=== PATIENT | female | born 1965 ===

== ENCOUNTER 2021-02-18 17:10 | Inpatient (IN) | payer MEDICAID ==
[2021-02-19] MEDS: OMEGA-3 FATTY ACIDS/FISH OIL 1 GRAM CAP PO SCH ×2 (20:26→21:34)
[2021-02-19] MEDS: traZODone 50 MG TAB PO SCH ×2 (20:26→21:34)
[2021-02-19] MEDS: MELATONIN 5 MG TAB PO PRN (20:54)
[2021-02-20] MEDS: OMEGA-3 FATTY ACIDS/FISH OIL 1 GRAM CAP PO SCH ×2 (09:40→22:15)
[2021-02-20 11:30] LABS: Basophils # (Auto) 0.1 K/mm3 (0.0-0.1); Basophils % (Auto) 0.5 % (0.0-1.8); Eosinophils # (Auto) 0.2 K/mm3 (0.0-0.4); Eosinophils % (Auto) 1.8 % (0.0-4.3); Hemoglobin 14.1 gm/dl (10.1-14.3); Lymphocytes # (Auto) 1.2 K/mm3 (1.2-5.4); Lymphocytes % (Auto) 12.4 % (13.4-35.0); Mean Corpuscular HGB Conc 34 % (30-34); Mean Corpuscular Volume 92 fl (79-97); Monocytes # (Auto) 0.6 K/mm3 (0.0-0.8); Monocytes % (Auto) 6.1 % (0.0-7.3); Platelet Count 227 K/mm3 (140-440); Red Blood Count 4.55 M/mm3 (3.65-5.03); Red Cell Distribution Width 17.2 % (13.2-15.2)
[2021-02-20 12:00] LABS: Albumin 3.6 g/dL (3.9-5); Chol/HDL Ratio 5.14 %
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
[2021-02-20] MEDS: FUROSEMIDE 20 MG TAB PO SCH (15:05)
[2021-02-20] MEDS: DIVALPROEX ER 500 MG TAB PO SCH ×2 (15:05→22:13)
[2021-02-20] MEDS: LISINOPRIL 5 MG TAB PO SCH (15:05)
[2021-02-20] MEDS: metFORMIN 500 MG TAB PO SCH (16:37)
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
[2021-02-20] MEDS ORDERED: risperiDONE 0.25 MG TAB PO SCH (22:00)
[2021-02-20] MEDS: traZODone 50 MG TAB PO SCH (22:13)
[2021-02-20] MEDS: risperiDONE 1 MG TAB PO SCH (22:13)
[2021-02-21] MEDS ORDERED: ACETAMINOPHEN 325 MG TAB PO PRN (03:02)
--- NOTE | 2021-02-21 08:42 | Progress Note ---
Subjective Date of service: 02/21/21 Principal diagnosis: Bipolar Disorder Subjective Comment: Per Nurse Note: Last evening the patient spent in the activity room. She denies si/hi. She presents as confused and hyperverbal. She presents as delusional by making statements about when she arrived here and other statements that are not consistent with her care. Her appetite is good. She is medication compliant. Overnight the patient was restless. She slept 3 hours but not continually. At 0300 the patient requested tylenol for leg pain. She came to the desk and asked for more tylenol at 0530. This life insurance underwriter explained we couldn't give her any more tylenol until it had been 4 hours. She understood and requested something to eat. She was given ice water and 2 pkgs crackers. Patient requested to put sugar in the water. This life insurance underwriter asked her about being diabetic. She stated "they say I am." It was explained to her sugar in the water would not be a good idea. She returned to her room. The patient was seen today, she says "I'm supposed to go home." She says "I'm worried about my son." The patient says she lives with her adult son. She denies SI/HI or hallucination of any kind. Nursing staff states the patient presents as delusional. REVIEW OF SYSTEMS Constitutional: Negative for weight loss ENT: Negative for stridor Respiratory: Negative for cough or hemoptysis All other systems reviewed and are negative MENTAL STATUS EXAMINATION General Appearance and Behavior: Age appropriate, good hygiene, not wearing appropriate clothes, good eye contact, cooperative polite with questioning. Cooperation: Participating/engaged Psychomotor Behavior: Psychomotor agitation Mood: Good Affect and affective range: euthymic, euphoric Thought Process:Circumstantial, Illogical, Thought Content: Flight of ideas, Illogical, Grandiose, Speech: pressured, loud volume at times Intellectual Functioning: Average Suicidal Ideation: Denies SI Homicidal Ideation: Denies HIl Impulse Control: Impaired Insight and Judgment: Limited insight and judgment Memory: Normal, Attention: Divided attention impaired Orientation: Alert, oriented, Assessment and Plan - Psychiatric problem (1) Bipolar 1 disorder with moderate jboy Current Visit: Yes Status: Acute Treatment Plan Patient admitted for inpatient psychiatric evaluation, medication adjustment and close monitoring The patient's behavior, mood, sleep and appetite will be closely monitored. Patient enrolled in individual and group therapeutic sessions and encouraged to attend. Patient provided with a safe and structured environment. Patient's physical health needs will be addressed by the Hospitalist. Hospitalist Consulted Labs including CBC, CMP, Lipid profile and Hemoglobin A1C levels ordered for baseline reference Valproic level 02/23 Social Assessment will be completed and the Access Developer will work with patient and family to ensure a suitable and safe disposition Medication adjustment will be made as clinically indicated Usual Wellness Jewish/Preservation: - Start Trazodone 50 mg po QHS & 50 mg po QHS PRN between 10 PM & 2 AM for insomnia - Start Melatonin 5 mg po QHS to promote circadian rhythm - Start [place]-3 for brain health, reduce impulsivity, and as adjunctive treatment for mood disorder, continue upon discharge given overall benefits. - Start B1 prophylaxis with 200 mg po for 5 days The patient agreed on the treatment plan, understood the risk, benefit, alternative treatment, potential consequence of no treatment, and gave informed consent. Estimated days: 6 Post hospital care: primary care provider, psychiatric provider Medications and Allergies Allergies Allergy/AdvReac Type Severity Reaction Status Date / Time No Known Allergies Allergy Verified 02/19/21 11:38 Home Medications Medication Instructions Recorded Confirmed Last Taken Type Cyanocobalamin [Vitamin B-12] 500 mcg PO DAILY 02/19/21 02/19/21 Unknown History Divalproex ER [DepaKOTE ER] 500 mg PO BID 02/19/21 02/19/21 Unknown History Docusate Sodium [Dok] 100 mg PO DAILY 02/19/21 02/19/21 Unknown History Enoxaparin Sodium [Lovenox] 40 mg SQ DAILY 02/19/21 02/19/21 Unknown History Furosemide [Lasix] 20 mg PO DAILY 02/19/21 02/19/21 Unknown History Lisinopril [Zestril] 5 mg PO DAILY 02/19/21 02/19/21 Unknown History Metformin HCl [metFORMIN] 1,000 mg PO BID 02/19/21 02/19/21 Unknown History Simvastatin 40 mg PO DAILY 02/19/21 02/19/21 Unknown History diphenhydrAMINE [Benadryl CAP] 50 mg PO PRN PRN 02/19/21 02/19/21 Unknown History risperiDONE [RisperDAL] 2 mg PO BID 05/19/21 05/19/21 Unknown History Active Meds: Active Medications Acetaminophen (Acetaminophen 325 Mg Tab) 650 mg PO Q6H PRN PRN Reason: Pain, Mild (1-3) Last Admin: 02/21/21 03:06 Dose: 650 mg Documented by: Atorvastatin Calcium (Atorvastatin 20 Mg Tab) 20 mg PO QHS [facility] Last Admin: 02/20/21 22:16 Dose: 20 mg Documented by: Divalproex Sodium (Divalproex Er 500 Mg Tab) 500 mg PO BID [facility] Last Admin: 02/20/21 22:13 Dose: 500 mg Documented by: Fish Oil ([place]-3 Fatty Acids/Fish Oil 1 Gram Cap) 2,000 mg PO BID [facility] Last Admin: 02/20/21 22:15 Dose: 2,000 mg Documented by: Furosemide (Furosemide 20 Mg Tab) 20 mg PO QAM [facility] Last Admin: 02/20/21 15:05 Dose: 20 mg Documented by: Lisinopril (Lisinopril 5 Mg Tab) 5 mg PO DAILY [facility] Last Admin: 02/20/21 15:05 Dose: 5 mg Documented by: Melatonin (Melatonin 5 Mg Tab) 5 mg PO QHS PRN PRN Reason: Sleep Metformin HCl (Metformin 500 Mg Tab) 1,000 mg PO BIDDIAB [facility] Last Admin: 02/20/21 16:37 Dose: 1,000 mg Documented by: Risperidone (Risperidone 1 Mg Tab) 1 mg PO BID [facility] Last Admin: 02/20/21 22:13 Dose: 1 mg Documented by: Trazodone HCl (Trazodone 50 Mg Tab) 50 mg PO QHS [facility] Last Admin: 02/20/21 22:13 Dose: 50 mg Documented by: Results - Results Labs/Vitals: Laboratory Last Values WBC 9.9 K/mm3 (4.5-11.0) 02/20/21 10:57 RBC 4.55 M/mm3 (3.65-5.03) 02/20/21 10:57 Hgb 14.1 gm/dl (10.1-14.3) 02/20/21 10:57 Hct 42.0 % (30.3-42.9) 02/20/21 10:57 MCV 92 fl (79-97) 02/20/21 10:57 MCH 31 pg (28-32) 02/20/21 10:57 MCHC 34 % (30-34) 02/20/21 10:57 RDW 17.2 % (13.2-15.2) H 02/20/21 10:57 Plt Count 227 K/mm3 (140-440) 02/20/21 10:57 Lymph % (Auto) 12.4 % (13.4-35.0) L 02/20/21 10:57 [place] % (Auto) 6.1 % (0.0-7.3) 02/20/21 10:57 Eos % (Auto) 1.8 % (0.0-4.3) 02/20/21 10:57 Baso % (Auto) 0.5 % (0.0-1.8) 02/20/21 10:57 Lymph # (Auto) 1.2 K/mm3 (1.2-5.4) 02/20/21 10:57 [place] # (Auto) 0.6 K/mm3 (0.0-0.8) 02/20/21 10:57 Eos # (Auto) 0.2 K/mm3 (0.0-0.4) 02/20/21 10:57 Baso # (Auto) 0.1 K/mm3 (0.0-0.1) 02/20/21 10:57 Seg Neutrophils % 79.2 % (40.0-70.0) H 02/20/21 10:57 Seg Neutrophils # 7.9 K/mm3 (1.8-7.7) H 02/20/21 10:57 Sodium 142 mmol/L (137-145) 02/20/21 10:57 Potassium 4.4 mmol/L (3.6-5.0) 02/20/21 10:57 Chloride 102.4 mmol/L (98-107) 02/20/21 10:57 Carbon Dioxide 29 mmol/L (22-30) 02/20/21 10:57 Anion Gap 15 mmol/L 02/20/21 10:57 BUN 23 mg/dL (7-17) H 02/20/21 10:57 Creatinine 1.0 mg/dL (0.6-1.2) 02/20/21 10:57 Estimated GFR 57 ml/min 02/20/21 10:57 BUN/Creatinine Ratio 23 % 02/20/21 10:57 Glucose 162 mg/dL (65-100) H 02/20/21 10:57 POC Glucose 134 mg/dL (70-105) H 02/20/21 20:21 Hemoglobin A1c 7.6 % (4-6) H 02/20/21 10:57 Calcium 9.0 mg/dL (8.4-10.2) 02/20/21 10:57 Total Bilirubin 0.30 mg/dL (0.1-1.2) 02/20/21 10:57 AST 16 units/L (5-40) 02/20/21 10:57 ALT 19 units/L (7-56) 02/20/21 10:57 Alkaline Phosphatase 136 units/L (35-129) H 02/20/21 10:57 Total Protein 6.1 g/dL (6.3-8.2) L 02/20/21 10:57 Albumin 3.6 g/dL (3.9-5) L 02/20/21 10:57 Albumin/Globulin Ratio 1.4 % 02/20/21 10:57 Triglycerides 267 mg/dL (2-149) H 02/20/21 10:57 Cholesterol 144 mg/dL (50-199) 02/20/21 10:57 LDL Cholesterol Direct 80 mg/dL (50-130) 02/20/21 10:57 HDL Cholesterol 28 mg/dL (40-59) L 02/20/21 10:57 Cholesterol/HDL Ratio 5.14 % 02/20/21 10:57 TSH 1.660 mlU/mL (0.270-4.200) 02/20/21 10:57 Last Vital Signs Temp 98.3 F 02/21/21 08:09 Pulse 86 02/21/21 08:09 Resp 18 02/21/21 08:09 BP 117/61 02/21/21 08:09 Pulse Ox 92 02/21/21 08:09
[2021-02-21] MEDS: FUROSEMIDE 20 MG TAB PO SCH (09:15)
[2021-02-21] MEDS: metFORMIN 500 MG TAB PO SCH ×2 (09:15→16:49)
[2021-02-21] MEDS: risperiDONE 1 MG TAB PO SCH ×2 (09:15→21:32)
[2021-02-21] MEDS: OMEGA-3 FATTY ACIDS/FISH OIL 1 GRAM CAP PO SCH ×2 (09:15→21:32)
[2021-02-21] MEDS: DIVALPROEX ER 500 MG TAB PO SCH ×2 (09:16→21:32)
[2021-02-21] MEDS: LISINOPRIL 5 MG TAB PO SCH (09:16)
[2021-02-21] MEDS: traZODone 50 MG TAB PO SCH (21:32)
[2021-02-22] MEDS: metFORMIN 500 MG TAB PO SCH ×2 (08:12→16:24)
[2021-02-22] MEDS: LISINOPRIL 5 MG TAB PO SCH (08:59)
[2021-02-22] MEDS: DIVALPROEX ER 500 MG TAB PO SCH ×2 (09:01→21:26)
[2021-02-22] MEDS: OMEGA-3 FATTY ACIDS/FISH OIL 1 GRAM CAP PO SCH ×3 (09:01→21:57)
[2021-02-22] MEDS: risperiDONE 1 MG TAB PO SCH (09:01)
[2021-02-22] MEDS: FUROSEMIDE 20 MG TAB PO SCH (09:01)
--- NOTE | 2021-02-22 10:32 | Progress Note ---
Subjective Date of service: 02/22/21 Principal diagnosis: Bipolar Disorder Subjective Comment: Per Nurse Note: [id number] Received pt in the activity room, awake, responsive to greetings, disorganized thoughts, stating that her date of is incorrect, she states that "I was [place], the bruises are a proof of date of , but the baby was frozen and was taken up to another state, but her sister is blown. Staff redirected pt and will continue to monitor pt. The patient was seen today, she says "I'm going home tomorrow. That's what somebody told me." Staff states the patient has been disorganized in her thought process. She tells me that she's coloring two pictures. She then says it's an out but I made it a blue bird. She denies SI/HI or hallucinations of any kind. She states she feels "pretty good." REVIEW OF SYSTEMS Constitutional: Negative for weight loss ENT: Negative for stridor Respiratory: Negative for cough or hemoptysis All other systems reviewed and are negative MENTAL STATUS EXAMINATION General Appearance and Behavior: Age appropriate, good hygiene, not wearing appropriate clothes, good eye contact, cooperative polite with questioning. Cooperation: Participating/engaged Psychomotor Behavior: Psychomotor agitation Mood: Good Affect and affective range: euthymic, euphoric Thought Process:Circumstantial, Illogical, Thought Content: Flight of ideas, Illogical, Grandiose, Speech: pressured, loud volume at times Intellectual Functioning: Average Suicidal Ideation: Denies SI Homicidal Ideation: Denies HIl Impulse Control: Impaired Insight and Judgment: Limited insight and judgment Memory: Normal, Attention: Divided attention impaired Orientation: Alert, oriented, Assessment and Plan (1) Bipolar 1 disorder with moderate joby Current Visit: Yes Status: Acute Treatment Plan Patient admitted for inpatient psychiatric evaluation, medication adjustment and close monitoring The patient's behavior, mood, sleep and appetite will be closely monitored. Patient enrolled in individual and group therapeutic sessions and encouraged to attend. Patient provided with a safe and structured environment. Patient's physical health needs will be addressed by the Hospitalist. Hospitalist Consulted Labs including CBC, CMP, Lipid profile and Hemoglobin A1C levels ordered for baseline reference Valproic level 02/23 Social Assessment will be completed and the Engineering Systems Analyst will work with patient and family to ensure a suitable and safe disposition Medication adjustment will be made as clinically indicated Increased Risperidone 1.25mg po BID Usual Wellness Jewish/Preservation: - Start Trazodone 50 mg po QHS & 50 mg po QHS PRN between 10 PM & 2 AM for insomnia - Start Melatonin 5 mg po QHS to promote circadian rhythm - Start Hood-3 for brain health, reduce impulsivity, and as adjunctive treatment for mood disorder, continue upon discharge given overall benefits. - Start B1 prophylaxis with 200 mg po for 5 days The patient agreed on the treatment plan, understood the risk, benefit, alternative treatment, potential consequence of no treatment, and gave informed consent. Estimated days: 5 Post hospital care: primary care provider, psychiatric provider Medications and Allergies Allergies Allergy/AdvReac Type Severity Reaction Status Date / Time No Known Allergies Allergy Verified 02/19/21 11:38 Home Medications Medication Instructions Recorded Confirmed Last Taken Type Cyanocobalamin [Vitamin B-12] 500 mcg PO DAILY 02/19/21 02/19/21 Unknown History Divalproex ER [DepaKOTE ER] 500 mg PO BID 02/19/21 02/19/21 Unknown History Docusate Sodium [Dok] 100 mg PO DAILY 02/19/21 02/19/21 Unknown History Enoxaparin Sodium [Lovenox] 40 mg SQ DAILY 02/19/21 02/19/21 Unknown History Furosemide [Lasix] 20 mg PO DAILY 02/19/21 02/19/21 Unknown History Lisinopril [Zestril] 5 mg PO DAILY 02/19/21 02/19/21 Unknown History Metformin HCl [metFORMIN] 1,000 mg PO BID 02/19/21 02/19/21 Unknown History Simvastatin 40 mg PO DAILY 02/19/21 02/19/21 Unknown History diphenhydrAMINE [Benadryl CAP] 50 mg PO PRN PRN 02/19/21 02/19/21 Unknown History risperiDONE [RisperDAL] 2 mg PO BID 02/19/21 02/19/21 Unknown History Active Meds: Active Medications Acetaminophen (Acetaminophen 325 Mg Tab) 650 mg PO Q6H PRN PRN Reason: Pain, Mild (1-3) Last Admin: 02/21/21 03:06 Dose: 650 mg Documented by: Atorvastatin Calcium (Atorvastatin 20 Mg Tab) 20 mg PO QHS SHAGUFTA Last Admin: 02/21/21 21:32 Dose: 20 mg Documented by: Divalproex Sodium (Divalproex Er 500 Mg Tab) 500 mg PO BID [facility] Last Admin: 02/22/21 09:01 Dose: 500 mg Documented by: Fish Oil (Hood-3 Fatty Acids/Fish Oil 1 Gram Cap) 2,000 mg PO BID [facility] Last Admin: 02/22/21 09:01 Dose: 2,000 mg Documented by: Furosemide (Furosemide 20 Mg Tab) 20 mg PO QAM [facility] Last Admin: 02/22/21 09:01 Dose: 20 mg Documented by: Lisinopril (Lisinopril 5 Mg Tab) 5 mg PO DAILY [facility] Last Admin: 02/22/21 08:59 Dose: Not Given Documented by: Melatonin (Melatonin 5 Mg Tab) 5 mg PO QHS PRN PRN Reason: Sleep Metformin HCl (Metformin 500 Mg Tab) 1,000 mg PO BIDDIAB [facility] Last Admin: 02/22/21 08:12 Dose: 1,000 mg Documented by: Risperidone (Risperidone 1 Mg Tab) 1 mg PO BID [facility] Last Admin: 02/22/21 09:01 Dose: 1 mg Documented by: Trazodone HCl (Trazodone 50 Mg Tab) 50 mg PO QHS [facility] Last Admin: 02/21/21 21:32 Dose: 50 mg Documented by: Results - Results Labs/Vitals: Laboratory Last Values WBC 9.9 K/mm3 (4.5-11.0) 02/20/21 10:57 RBC 4.55 M/mm3 (3.65-5.03) 02/20/21 10:57 Hgb 14.1 gm/dl (10.1-14.3) 02/20/21 10:57 Hct 42.0 % (30.3-42.9) 02/20/21 10:57 MCV 92 fl (79-97) 02/20/21 10:57 MCH 31 pg (28-32) 02/20/21 10:57 MCHC 34 % (30-34) 02/20/21 10:57 RDW 17.2 % (13.2-15.2) H 02/20/21 10:57 Plt Count 227 K/mm3 (140-440) 02/20/21 10:57 Lymph % (Auto) 12.4 % (13.4-35.0) L 02/20/21 10:57 [place] % (Auto) 6.1 % (0.0-7.3) 02/20/21 10:57 Eos % (Auto) 1.8 % (0.0-4.3) 02/20/21 10:57 Baso % (Auto) 0.5 % (0.0-1.8) 02/20/21 10:57 Lymph # (Auto) 1.2 K/mm3 (1.2-5.4) 02/20/21 10:57 [place] # (Auto) 0.6 K/mm3 (0.0-0.8) 02/20/21 10:57 Eos # (Auto) 0.2 K/mm3 (0.0-0.4) 02/20/21 10:57 Baso # (Auto) 0.1 K/mm3 (0.0-0.1) 02/20/21 10:57 Seg Neutrophils % 79.2 % (40.0-70.0) H 02/20/21 10:57 Seg Neutrophils # 7.9 K/mm3 (1.8-7.7) H 02/20/21 10:57 Sodium 142 mmol/L (137-145) 02/20/21 10:57 Potassium 4.4 mmol/L (3.6-5.0) 02/20/21 10:57 Chloride 102.4 mmol/L (98-107) 02/20/21 10:57 Carbon Dioxide 29 mmol/L (22-30) 02/20/21 10:57 Anion Gap 15 mmol/L 02/20/21 10:57 BUN 23 mg/dL (7-17) H 02/20/21 10:57 Creatinine 1.0 mg/dL (0.6-1.2) 02/20/21 10:57 Estimated GFR 57 ml/min 02/20/21 10:57 BUN/Creatinine Ratio 23 % 02/20/21 10:57 Glucose 162 mg/dL (65-100) H 02/20/21 10:57 POC Glucose 152 mg/dL (70-105) H 02/22/21 06:01 Hemoglobin A1c 7.6 % (4-6) H 02/20/21 10:57 Calcium 9.0 mg/dL (8.4-10.2) 02/20/21 10:57 Total Bilirubin 0.30 mg/dL (0.1-1.2) 02/20/21 10:57 AST 16 units/L (5-40) 02/20/21 10:57 ALT 19 units/L (7-56) 02/20/21 10:57 Alkaline Phosphatase 136 units/L (35-129) H 02/20/21 10:57 Total Protein 6.1 g/dL (6.3-8.2) L 02/20/21 10:57 Albumin 3.6 g/dL (3.9-5) L 02/20/21 10:57 Albumin/Globulin Ratio 1.4 % 02/20/21 10:57 Triglycerides 267 mg/dL (2-149) H 02/20/21 10:57 Cholesterol 144 mg/dL (50-199) 02/20/21 10:57 LDL Cholesterol Direct 80 mg/dL (50-130) 02/20/21 10:57 HDL Cholesterol 28 mg/dL (40-59) L 02/20/21 10:57 Cholesterol/HDL Ratio 5.14 % 02/20/21 10:57 TSH 1.660 mlU/mL (0.270-4.200) 02/20/21 10:57 Valproic Acid 44.2 ug/mL (50-100) L 02/22/21 08:31 Last Vital Signs Temp 99.5 F 02/22/21 08:00 Pulse 89 02/22/21 08:59 Resp 18 02/22/21 08:00 BP 113/54 02/22/21 08:59 Pulse Ox 93 02/22/21 08:00
[2021-02-22] MEDS ORDERED: risperiDONE 1 MG TAB PO SCH ×2 (10:35→22:00)
[2021-02-22] MEDS: traZODone 50 MG TAB PO SCH ×2 (21:26→21:58)
[2021-02-22] MEDS: MELATONIN 5 MG TAB PO PRN (21:26)
[2021-02-22] MEDS: risperiDONE 0.25 MG TAB PO SCH (21:29)
[2021-02-22 23:34] VITALS: BP 117/65
[2021-02-23] MEDS: metFORMIN 500 MG TAB PO SCH (07:47)
[2021-02-23] MEDS: OMEGA-3 FATTY ACIDS/FISH OIL 1 GRAM CAP PO SCH (09:03)
[2021-02-23] MEDS: DIVALPROEX ER 500 MG TAB PO SCH (09:04)
[2021-02-23] MEDS: FUROSEMIDE 20 MG TAB PO SCH (09:04)
[2021-02-23] MEDS: risperiDONE 0.25 MG TAB PO SCH (09:04)
[2021-02-23] MEDS: LISINOPRIL 5 MG TAB PO SCH (09:05)
--- NOTE | 2021-02-23 09:44 | Discharge Summary ---
Providers - Providers Date of Admission: 02/19/21 08:38 Date of discharge: 02/23/21 Attending physician: BEA HILLS MD 02/18/21 18:39 Consult to Physician [CONS] Routine Comment: Consulting Provider: ANDREY BOCANEGRA Physician Instructions: Reason For Exam: med mangt Primary care physician: MA[employer]GER [employer] Hospitalization Reason for admission: psychosis Admitting Diagnosis: F31.9 - BIPOLAR DISORDER, UNSPECIFIED Condition: Stable Disposition: DC-01 TO HOME OR SELFCARE Time spent for discharge: 38 Allergies/Adverse Reactions: Allergies No Known Allergies Allergy (Verified 02/19/21 11:38) Vital Signs: Last Vital Signs Temp 98.7 F 02/22/21 19:26 Pulse 82 02/23/21 09:05 Resp 17 02/22/21 19:26 BP 117/65 02/23/21 09:05 Pulse Ox 93 02/22/21 08:00 Last Lab: Laboratory Last Values WBC 9.9 K/mm3 (4.5-11.0) 02/20/21 10:57 RBC 4.55 M/mm3 (3.65-5.03) 02/20/21 10:57 Hgb 14.1 gm/dl (10.1-14.3) 02/20/21 10:57 Hct 42.0 % (30.3-42.9) 02/20/21 10:57 MCV 92 fl (79-97) 02/20/21 10:57 MCH 31 pg (28-32) 02/20/21 10:57 MCHC 34 % (30-34) 02/20/21 10:57 RDW 17.2 % (13.2-15.2) H 02/20/21 10:57 Plt Count 227 K/mm3 (140-440) 02/20/21 10:57 Lymph % (Auto) 12.4 % (13.4-35.0) L 02/20/21 10:57 [place] % (Auto) 6.1 % (0.0-7.3) 02/20/21 10:57 Eos % (Auto) 1.8 % (0.0-4.3) 02/20/21 10:57 Baso % (Auto) 0.5 % (0.0-1.8) 02/20/21 10:57 Lymph # (Auto) 1.2 K/mm3 (1.2-5.4) 02/20/21 10:57 [place] # (Auto) 0.6 K/mm3 (0.0-0.8) 02/20/21 10:57 Eos # (Auto) 0.2 K/mm3 (0.0-0.4) 02/20/21 10:57 Baso # (Auto) 0.1 K/mm3 (0.0-0.1) 02/20/21 10:57 Seg Neutrophils % 79.2 % (40.0-70.0) H 02/20/21 10:57 Seg Neutrophils # 7.9 K/mm3 (1.8-7.7) H 02/20/21 10:57 Sodium 142 mmol/L (137-145) 02/20/21 10:57 Potassium 4.4 mmol/L (3.6-5.0) 02/20/21 10:57 Chloride 102.4 mmol/L (98-107) 02/20/21 10:57 Carbon Dioxide 29 mmol/L (22-30) 02/20/21 10:57 Anion Gap 15 mmol/L 02/20/21 10:57 BUN 23 mg/dL (7-17) H 02/20/21 10:57 Creatinine 1.0 mg/dL (0.6-1.2) 02/20/21 10:57 Estimated GFR 57 ml/min 02/20/21 10:57 BUN/Creatinine Ratio 23 % 02/20/21 10:57 Glucose 162 mg/dL (65-100) H 02/20/21 10:57 POC Glucose 89 mg/dL (70-105) 02/22/21 11:42 Hemoglobin A1c 7.6 % (4-6) H 02/20/21 10:57 Calcium 9.0 mg/dL (8.4-10.2) 02/20/21 10:57 Total Bilirubin 0.30 mg/dL (0.1-1.2) 02/20/21 10:57 AST 16 units/L (5-40) 02/20/21 10:57 ALT 19 units/L (7-56) 02/20/21 10:57 Alkaline Phosphatase 136 units/L (35-129) H 02/20/21 10:57 Total Protein 6.1 g/dL (6.3-8.2) L 02/20/21 10:57 Albumin 3.6 g/dL (3.9-5) L 02/20/21 10:57 Albumin/Globulin Ratio 1.4 % 02/20/21 10:57 Triglycerides 267 mg/dL (2-149) H 02/20/21 10:57 Cholesterol 144 mg/dL (50-199) 02/20/21 10:57 LDL Cholesterol Direct 80 mg/dL (50-130) 02/20/21 10:57 HDL Cholesterol 28 mg/dL (40-59) L 02/20/21 10:57 Cholesterol/HDL Ratio 5.14 % 02/20/21 10:57 TSH 1.660 mlU/mL (0.270-4.200) 02/20/21 10:57 Valproic Acid 44.2 ug/mL (50-100) L 02/22/21 08:31 Core Measure Documentation - Palliative Care Palliative Care/ Comfort Measures: Not Applicable - Core Measures Any of the following diagnoses?: none Exam - Constitutional Vitals: Temp Pulse Resp BP Pulse Ox 98.7 F 82 17 117/65 93 02/22/21 19:26 02/23/21 09:05 02/22/21 19:26 02/23/21 09:05 02/22/21 08:00 General appearance: Present: no acute distress - EENT Eyes: Present: EOM intact ENT: hearing intact, clear oral mucosa - Neck Neck: Present: supple, normal ROM - Respiratory Respiratory effort: normal Plan Activity: advance as tolerated Weight Bearing Status: Weight Bear as Tolerated Care Plan Goals: maintain good and stable mental health Assessment: Bipolar Disorder Follow up with: PRIMARY CARE, [Primary Care Provider] - 7 Days Prescriptions: traZODone [Desyrel] 50 mg PO QHS #30 tablet Melatonin [Melatonin 5MG TAB] 5 mg PO QHS PRN #30 tablet PRN Reason: Sleep risperiDONE [RisperDAL] 1 mg PO QHS #30 tablet risperiDONE [RisperDAL] 0.25 mg PO BID #60 tablet
== END 2021-02-23 09:50 | disposition home or self-care (01) | DRG 885 ==
LOC: UNDOADMIN 17:10 → 3A 17:10 → 5A 02-19 08:38
PROVIDERS: ADMIT Psychiatry & Neurology Psychiatry; ATTEND Psychiatry & Neurology Psychiatry
DX: F31.9 Bipolar disorder, unspecified (principal); E66.01 Morbid (severe) obesity due to excess calories; Z68.43 Body mass index [BMI] 50.0-59.9, adult; Z71.3 Dietary counseling and surveillance
CPT/HCPCS: 36415; 80053; 80061; 80164; 82962; 83036; 84443; 85025; G0378; A9270-GY